=== PATIENT | male | born 1960 | race Caucasian/White ===

== ENCOUNTER 2018-04-09 05:41 | Inpatient (IN) ==
[~2018-04-09 05:41] MED LIST: LIDOCAINE W/ SODIUM BICARB 0.5 ML SYR ONE; Lactated Ringers 1,000 ML PRIMARY IV ONE; Sodium Chloride 0.9% 250 ML ONE; Vancomycin Inj 1gm vial ONE; ceFAZolin Inj 2gm (Premix) 0 GM/0 ML BAG IV ONE
[2018-04-09] MEDS ORDERED: ceFAZolin Inj 2gm (Premix) 2 GM/50 ML BAG IV ONE (06:00)
[2018-04-09] MEDS ORDERED: Nasal Sanitizer POPSWAB ampule 3 AMP (Nozin) PREOP DOSE ENOS SCH (06:00)
[2018-04-09] MEDS ORDERED: LIDOCAINE W/ SODIUM BICARB 0.5 ML SYR SUBD ONE (06:00)
[2018-04-09] MEDS ORDERED: Lactated Ringers 1,000 ML PRIMARY IV ONE ×4 (06:00→13:47)
[2018-04-09] MEDS ORDERED: MIDAZOLAM 5 MG/1 ML ONE (06:02)
[2018-04-09] MEDS ORDERED: DEXAMETHASONE PF 10 MG/1 ML VIAL ONE (06:02)
[2018-04-09] MEDS ORDERED: KETOROLAC 30 MG/1 ML VIAL ONE (06:02)
[2018-04-09] MEDS ORDERED: LIDOCAINE MPF 2% - 5 ML (20 MG/1 ML) ONE (06:02)
[2018-04-09] MEDS ORDERED: CITRIC ACID/SODIUM CITRATE 30 ML CUP PO ONE (06:03)
[2018-04-09] MEDS ORDERED: fentaNYL Inj 250 MCG/5 ML VIAL ONE (06:03)
[2018-04-09] MEDS ORDERED: FAMOTIDINE 20 MG/2 ML VIAL IVP ONE (06:03)
[2018-04-09] MEDS ORDERED: ROCURONIUM 10 MG/1 ML - 5 ML VIAL IVP ONE (06:03)
[2018-04-09] MEDS ORDERED: Propofol 1,000 MG/100 ML VIAL IV ONE ×4 (06:03→12:04)
[2018-04-09] MEDS ORDERED: Acetaminophen 1000mg Inj 1,000 MG/100 ML VIAL IV ONE (06:04)
[2018-04-09] MEDS ORDERED: REMIFENTANIL HCL 2 MG VIAL IV ONE ×3 (06:13→12:58)
[2018-04-09 06:14] LABS: BILIRUBIN,URINE NEGATIVE (NEG); CLARITY,URINE CLEAR (CLEAR); COLOR,URINE YELLOW (Y); GLUCOSE, URINE (UA) NEGATIVE (NEG); OCCULT BLOOD,URINE NEGATIVE (NEG); PH,URINE 5.5 (5.0-8.5); PROTEIN,URINE NEGATIVE (NEG); UROBILINOGEN,URINE 0.2 EU/dL (0.2)
[2018-04-09] MEDS ORDERED: TRANEXAMIC ACID 1,000 MG / 10 ML VIAL ONE (06:14)
[2018-04-09 06:15] LABS: URINE SAMPLE TYPE CLEAN CATCH URINE
[2018-04-09] MEDS ORDERED: SUCCINYLCHOLINE CHLORIDE 20 MG/1 ML - 10 ML ONE (06:18)
[2018-04-09] MEDS ORDERED: KETAMINE HCL 100 MG/2 ML SYRINGE IV ONE (06:18)
[2018-04-09] MEDS ORDERED: BUPIVACAINE 0.25% W/ EPI - 10 ML VIAL ONE (06:57)
[2018-04-09] MEDS ORDERED: Sodium Chloride 0.9% vial 30 ML ONE (06:57)
[2018-04-09] MEDS ORDERED: BACITRACIN 50,000 UNIT VIAL IRRIG ONE (06:57)
[2018-04-09] MEDS ORDERED: LIDOCAINE HCL 2 % 10 ML JELLY URO-JECT TOPICAL ONE ×2 (07:01→07:45)
[2018-04-09] MEDS ORDERED: ceFAZolin Inj 3 GM in Sodium Chloride 0.9% 100 ML IV ONE (07:15)
[2018-04-09] MEDS ORDERED: ePHEDrine Inj 50 MG/ML AMP ONE (08:22)
[2018-04-09] MEDS ORDERED: HYDROmorphone 2 MG/1 ML ONE (08:22)
[2018-04-09] MEDS ORDERED: Sodium Chloride 0.9% vial 10 ML ONE (08:25)
[2018-04-09] MEDS ORDERED: PHENYLEPHRINE 10,000 MCG/1 ML VIAL ONE (08:25)
[2018-04-09] MEDS ORDERED: Sodium Chloride 0.9% 250 ML ONE (09:08)
[2018-04-09] MEDS ORDERED: ceFAZolin 1 GM VIAL ONE (12:37)
[2018-04-09] MEDS ORDERED: fentaNYL Inj 100 MCG/2 ML VIAL ONE (13:47)
[2018-04-09] MEDS ORDERED: Metoclopramide Inj 10 MG/2 ML VIAL IVP PRN (14:26)
[2018-04-09] MEDS ORDERED: diphenhydrAMINE 50 MG/1 ML VIAL IVP PRN (14:26)
[2018-04-09] MEDS ORDERED: ONDANSETRON 4 MG/2 ML VIAL IVP PRN ×2 (14:26→14:37)
[2018-04-09] MEDS ORDERED: LIDOCAINE W/ SODIUM BICARB 0.5 ML SYR SUBD PRN (14:26)
[2018-04-09] MEDS: HYDROmorphone 2 MG/1 ML IVP PRN ×4 (14:32→15:14)
[2018-04-09] MEDS ORDERED: DIAZEPAM 10 MG TABLET PO PRN (14:37)
[2018-04-09] MEDS ORDERED: MAGNESIUM 400 MG/5 ML - 30 ML (MILK OF MAGNESIA) PO PRN (14:37)
[2018-04-09] MEDS ORDERED: DOCUSATE 100 MG CAPSULE PO PRN (14:37)
[2018-04-09] MEDS ORDERED: Ondansetron ODT Tab 4 MG TAB PO PRN (14:37)
[2018-04-09] MEDS ORDERED: Fleet Enema 133ml RECTAL PRN (14:37)
[2018-04-09] MEDS ORDERED: Prochlorperazine Edisylate Inj 10mg/2ml vial IVP PRN (14:37)
[2018-04-09] MEDS ORDERED: HYDROcodone-APAP 5 MG -325 MG TABLET PO PRN (14:37)
[2018-04-09] MEDS ORDERED: BISACODYL 5 MG TABLET PO PRN (14:37)
[2018-04-09] MEDS ORDERED: DIAZEPAM 10 MG/2 ML (5 MG/1 ML) CARPUJECT IVP PRN (14:37)
[2018-04-09] MEDS ORDERED: MORPHINE SULFATE 2 MG/1 ML IVP PRN (14:37)
[2018-04-09] MEDS ORDERED: PROMETHAZINE 25 MG/1 ML VIAL IM PRN (14:37)
[2018-04-09] MEDS ORDERED: MAGNESIUM CITRATE 296 ML SOLUTION PO PRN (14:37)
[2018-04-09] MEDS ORDERED: Vancomycin-PHA to Dose IV SCH (14:45)
[2018-04-09] MEDS ORDERED: ceFAZolin Inj 1 GM in Sodium Chloride 0.9% 100 ML IV SCH (16:00)
[2018-04-09] MEDS: ceFAZolin Inj 2gm (Premix) 2 GM/50 ML BAG IV SCH (16:26)
[2018-04-09] MEDS: HYDROcodone-APAP 10 MG-325 MG TABLET PO PRN (16:27)
--- NOTE | 2018-04-09 18:33 | GEN.OPNOTE ---
Operative Note Surgery Date: 04/09/18 Preoperative Diagnosis: 1) Early cervical myelopathy. 2) Persistent and progressive neck pain for over six months. 3) Persistent and progressive right hand weakness, present for over six months. 4) Multilevel cervical degenerative disc disease, mild C2-3, moderate C4-5, early advanced C5-6 and C6- 7, advanced C3-4. 5) Multilevel cervical spondylosis, mild to moderate throughout the cervical spine. 6) Prominent diffuse disc bulge, C3-4 producing high grade central canal stenosis with complete effacement of the CSF signal around the cord at this level, but no evidence of suzanne cord compression with the cord caliber appearing to be normal. No evidence of signal change in the cord at this level. There is severe bilateral neuroforaminal stenosis at this level. 7) Moderate central canal stenosis C4-5 secondary to a broad based disc bulge, but with severe bilateral neuroforaminal stenosis at this level. 8) Very prominent broad based diffuse disc bulge, C5-6 with ligamentous hypertrophy and cervical spondylosis and ligamentous hypertrophy with the combined effect producing marked central canal stenosis at this level with clear impingement and deformation of the cervical spinal cord with reduction in the caliber of the spinal cord at this level and myelomalacia present throughout the majority of the cord at this level and extending below to the C6-7 level. There is severe bilateral neuroforaminal stenosis at this level. 9) Moderately severe central canal stenosis C6-7 secondary to a broad based disc bulge, more diffuse prominent disc bulge more prominent, however on the right with cervical spondylosis and ligamentous hypertrophy at this level producing high grade central canal stenosis, but with some CSF signal at least around the cervical spinal cord at least in the left hemicanal. There is no cord compression at this level, but minimal protective CSF signal, particularly in the right hemicanal. There is severe bilateral neuroforaminal stenosis at this level. Postoperative Diagnosis: 1) Early cervical myelopathy. 2) Persistent and progressive neck pain for over six months. 3) Persistent and progressive right hand weakness, present for over six months. 4) Multilevel cervical degenerative disc disease, mild C2-3, moderate C4-5, early advanced C5-6 and C6- 7, advanced C3-4. 5) Multilevel cervical spondylosis, mild to moderate throughout the cervical spine. 6) Prominent diffuse disc bulge, C3-4 producing high grade central canal stenosis with complete effacement of the CSF signal around the cord at this level, but no evidence of suzanne cord compression with the cord caliber appearing to be normal. No evidence of signal change in the cord at this level. There is severe bilateral neuroforaminal stenosis at this level. 7) Moderate central canal stenosis C4-5 secondary to a broad based disc bulge, but with severe bilateral neuroforaminal stenosis at this level. 8) Very prominent broad based diffuse disc bulge, C5-6 with ligamentous hypertrophy and cervical spondylosis and ligamentous hypertrophy with the combined effect producing marked central canal stenosis at this level with clear impingement and deformation of the cervical spinal cord with reduction in the caliber of the spinal cord at this level and myelomalacia present throughout the majority of the cord at this level and extending below to the C6-7 level. There is severe bilateral neuroforaminal stenosis at this level. 9) Moderately severe central canal stenosis C6-7 secondary to a broad based disc bulge, more diffuse prominent disc bulge more prominent, however on the right with cervical spondylosis and ligamentous hypertrophy at this level producing high grade central canal stenosis, but with some CSF signal at least around the cervical spinal cord at least in the left hemicanal. There is no cord compression at this level, but minimal protective CSF signal, particularly in the right hemicanal. There is severe bilateral neuroforaminal stenosis at this level. Procedure: 1.) Anterior cervical discectomy, C3-4 with removal of the posterior longitudinal ligament, for decompression of central cervical canal stenosis and bilateral neuroforaminal stenosis. (CPT code: 74472). 2.) Anterior cervical discectomy, C4-5 with removal of the posterior longitudinal ligament, for decompression of central cervical canal stenosis and bilateral neuroforaminal stenosis. (CPT code: 70234). 3.) Anterior cervical discectomy, C5-6 with removal of the posterior longitudinal ligament, for decompression of central cervical canal stenosis and bilateral neuroforaminal stenosis. (CPT code: 63 076). 4.) Anterior cervical discectomy, C6-7 with removal of the posterior longitudinal ligament, for decompression of central cervical canal stenosis and bilateral neuroforaminal stenosis. (CPT code: 76449). 5.) Arthrodesis, anterior interbody technique, C3-4. (CPT code: 05324). 6.) Arthrodesis, anterior interbody technique, C4-5. (CPT code: 65545). 7.) Arthrodesis, anterior interbody technique, C5-6. (CPT code: 90006). 8.) Arthrodesis, anterior interbody technique, C6-7. (CPT code: 92342). 9.) Insertion of a 6 mm x 17 mm x 14 mm 6-degree lordotic Svitlana Tritanium C titanium anterior cervical cage filled in the center with DBM putty in the C3-4 interspace for fusion of the C3-4 interspace. (CPT code: 48049). 10.) Insertion of a 6 mm x 17 mm x 14 mm 6-degree lordotic [place] Tritanium C titanium anterior cervical cage filled in the center with DBM putty in the C4-5 interspace for fusion of the C4-5 interspace. (CPT code: 98754). 11.) Insertion of a 6 mm x 17 mm x 14 mm 6- degree lordotic Svitlana Tritanium C titanium anterior cervical cage filled in the center with DBM putty in the C5-6 interspace for fusion of the C5-6 interspace. (CPT code: 30877). 12.) Insertion of a 6 mm x 17 mm x 14 mm 6- degree lordotic [place] Tritanium C titanium anterior cervical cage filled in the center with DBM putty in the C6-7 interspace for fusion of the C6-7 interspace. (CPT code: 45970). 13.) Anterior cervical plating C3-C7 using a 4- level, 10 hole, 60 mm Svitlana Aviator titanium anterior cervical plate, affixed to the C3 vertebral body using 4.0 mm x 16 mm variable angle titanium anterior cervical screws, to the C4, C5, and C6 vertebral bodies using 4.0 mm x 14 mm variable angle titanium anterior cervical screws, and to the C7 vertebral body using 4.0 mm x 16 mm fixed angle titanium anterior cervical screws. (CPT code: 47279). 14.) Use of 5 cc of Click & Grow BIO DBM Plus Putty with Cancellous (implantable allograft) for filling of the anterior cervical cages. (CPT code: 46562). 15.) Use of the operative microscope for the microsurgical techiques for the C3-4, C4-5, C5-6, and C6-7 discectomies. (CPT code: 58303). 16.) Use of intra-operative fluoroscopy for localization of correct surgical levels, for confirmation of the final position of the intervertebral cages, and for confirmation of the final position of the anterior cervical hardware elements. 17.) Use of intra-operative neuromonitoring including free running EMG's, SSEP's, and MEP's. Surgeon: Michel Nguyen MD Marble Machine Tender: PINEDA Abraham Anesthesia Provider: Rivka Judd CRNA Anesthesia Type: General Estimated Blood Loss (mL): 100 Fluids: See anesthesia record Pathology: None Indications: Mr. Estrella is a 57-year-old gentleman who started to have neck pain and weakness of his right hand that started in November of last year. This has persisted and his neck pain became worse recently. Mr. Estrella neck pain has been persistent now for six months and is getting worse, but probably of equal or worse concern to him is his right hand weakness, which appears to be getting worse as well. This is his dominant hand and it concerns him that he cannot use it the way he would like to. He has difficulty hold onto things and he has difficulty with dexterity of the right hand. He states it is difficult for him to button buttons. Mr. Estrella denies any gait disturbance; balance issues; and he denies any bladder, bowel, or sexual dysfunction. Mr. Estrella had an MRI scan of the cervical spine demonstrating multilevel high grade central canal stenosis with cord compression and multilevel severe cervical neuroforaminal stenosis. We discussed considering, particularly for his early myelopathic symptoms with imaging evidence of cord compression, undergoing a C3-4, C4-5, C5-6, C6-7 anterior cervical discectomy and fusion. He wished to proceed with that surgical procedure. Findings: 1.) Collapse of the majority of the disc space height, C3-4, C5-6, C6-7. 2.) Severe central canal stenosis, C3-4, C5-6, C6-7. 3.) Severe bilateral neuroforaminal stenosis, C3-4, C4-5, C5-6, C6-7 Complications: NOne Operative Summary: Mr. Estrella was met in the preoperative area. His documented surgical history and physical was reviewed. We reviewed the procedure to be performed and we were in agreement on the procedure to be performed and this matched what was written on the patient's consent form. Any questions that Mr. Estrella or his had were answered before he was taken back to the operating room suite. Mr. Estrlela was brought back to the operating room suite. He was moved over onto the surgical bed in supine position. General anesthesia was induced by the anesthesia staff and he was intubated. A Hayward catheter was placed in his bladder for the procedure. He had pneumatic compression hose placed on his lower legs bilaterally. His head was placed on a gel ring and rolled up surgical towels were placed in the intrascapular area and under his shoulders bilaterally. His arms were gently tucked at his sides. All bony prominences were well padded. His Hayward catheter was checked to be free from kinks. His pneumatic compression hose were attached to a pneumatic compression devise. The C-arm fluoroscopy unit was used to help localize the skin incision for the approach to the intended surgical level. The skin was marked along the medial border of the sternocleidomastoid muscle with a skin marker. Mr. Estrella was prepped and draped in the usual and standard fashion. He was given 3 grams of A ncef and 1 gram of vancomycin IV for perioperative antibiosis. A standard surgical timeout was performed identifying the correct patient, the correct procedure, and the correct equipment being available for the procedure. The intended skin incision was injected subcutaneously with quarter percent Marcaine with 1 in 200,000 epinephrine. The skin was incised with a 10 blade scalpel and all dermal and superficial bleeding points controlled with bipolar cautery. Dissection was continued down through the subcutaneous tissue to the level of the platysma muscle. The platysma muscle was incised with the Metzenbaum scissors in the direction of the skin incision. This allowed identification the medial border of the sternocleidomastoid muscle. Further dissection identified the omohyoid muscle which was circumferentially dissected out, tagged with two 0-Silk suture and then cut with a Metzenbaum scissors with the muscle stumps retracted with snaps attached to the sutures. Continued dissection was performed medial to the sternocleidomastoid muscle in both a sharp and blunt fashion down to the pre- vertebral fascia. The carotid artery was palpated to be lateral to the dissection plane. Cloward hand-held retractors were used to retract and protect the soft tissues while the prevertebral fascia was dissected with a Kitner. Once the disc space became exposed a bent spinal needle was placed into the disc space and the level was localized as the C4-5 level, one of the intended surgical levels with lateral fluoroscopy. Continued dissection of the prevertebral fascia was performed exposing the C3, C4, C5, C6, and C7 vertebral bodies. The medial border of the longus coli muscle was dissected with Bovie cautery with an insulated tip turned down to a low setting from C3-C7 bilaterally. The hand-held Cloward retractors were then replaced with the Application Trainer self-retaining retractor system which was first placed at the C3-4 level to expose this level and protect the soft tissues at this level. A 12 mm distraction pin was placed into the C3 vertebral body and another was placed into the C4 vertebral body. The operative microscope was brought into the surgical field and used for microsurgical techniques used for the C3-4 discectomy. An annulotomy was performed with a 15 blade scalpel and disc material was removed with a pituitary rongeur. Additional disc and cartilaginous endplate was loosened in the disc space using a small straight curette with the fragments being removed with a pituitary rongeur. The high-speed Naked Ed drill with a matchstick bit was used to perform arthrodesis/decortication of the C3 and C4 endplates preparing the endplates for fusion. The same drill with the same bit was used to drill away the prominent diffuse osteophytes along the posterior inferior aspect of the C3 vertebral body and the posterior superior aspect of C4 vertebral body as well as the uncovertebral joints bilaterally which were hypertrophied bilaterally. Foraminotomies were performed bilaterally with the same drill with same bit. A nerve hook was used to define the plane between the posterior longitudinal ligament and the dura. The posterior longitudinal ligament was completely removed with small Kerrison punches. The same instruments were used to extend the foraminotomies bilaterally that had been started with the high-speed drill with a matchstick bit. Excellent decompression of the spinal canal, neuroforamen, and exiting nerve roots was assured both by visual inspection as well as by palpation with a nerve hook underneath the vertebral bodies and out the neuroforamen bilaterally. The interspace was irrigated with bacitracin irrigation. FloSeal hemostatic agent was placed over all exposed dural elements. The interspace was sized the appropriate size anterior cervical cage. A 6 mm x 14 mm x 17 mm 6-degree lordotic Tritanium C titanium anterior cervical cage was selected and filled in the center with [place] BIO DBM Plus Putty with Cancellous(allograft) and then inserted into the C3-4 interspace with the payroll supervisor. The cage was gently countersunk with a bone tamp and mallet. The cage obtained good purchase between the C3 and C4 endplates. The final position of the cage was confirmed with lateral fluoroscopy. The C3 Kimmswick distraction pin was removed and bony bleeding was controlled with FloSeal and a surgical ponce. The Application Trainer self-retaining retractor system was removed and placed across the C4-5 level for the exposure this level and the protection of the soft tissues at this level. The Kimmswick distraction pin was placed into the C5 vertebral body. The operative microscope was used for this microsurgical techniques used for the C4-5 discectomy. An annulotomy was performed with a 15 blade scalpel and disc material was removed with a pituitary rongeur. Additional disc and cartilaginous endplate was loosened in the disc space with a small straight curette with the fragments being removed with a pituitary ronqeur. The high- speed Naked Ed drill with a matchstick bit was used to perform arthrodesis/decortication of the C4 and C5 endplates preparing the endplates for fusion. The same drill with the same bit was used to drill away the diffuse, prominent osteophytes along the posterior inferior aspect of the C4 vertebral body and the posterior superior aspect of the C5 vertebral body as well as to drill away the uncovertebral joint hypertrophy bilaterally. Foraminotomies were performed bilaterally with the same drill with the same bit. A nerve hook was used to define the plane between the posterior longitudinal ligament and the dura. The posterior longitudinal ligament was completely removed with small Kerrison punches. The same instruments were used to extend the foraminotomies bilaterally that had been started with the high-speed drill with a matchstick bit. Excellent decompression of the spinal canal, neuroforamen, and exiting nerve roots was assured both by visual inspection as well as by palpation with a nerve hook underneath the vertebral bodies and out the neuroforamen bilaterally. The interspace was irrigated with bacitracin irrigation. FloSeal hemostatic agent was placed over all exposed dural elements. The interspace was sized the appropriate size anterior cervical cage. A 6 mm x 14 mm x 17 mm 6-degree Tritanium C titanium anterior cervical cage was selected and filled in the center with Svitlana BIO DBM PlusPutty with Cancellous (allograft) and then inserted into the C4-5 interspace with the payroll supervisor. The cage was gently countersunk with a bone tamp and mallet. The cage obtained good purchase between the C4 and C5 endplates. The final position of the cage was confirmed with lateral fluoroscopy. The C5 Kimmswick distraction pin was removed and bony bleeding was controlled with FloSeal and a surgical ponce. The Application Trainer self-retaining retractor system was removed and placed across the C5-6 level for the exposure this level and the protection of the soft tissues at this level. The Kimmswick distraction pin was placed into the C6 vertebral body. The operative microscope was used for this microsurgical techniques used for the C5-6 discectomy. An annulotomy was performed with a 15 blade scalpel and disc material was removed with a pituitary rongeur. Additional disc and cartilaginous endplate was loosened in the disc space with a small straight curette with the fragments being removed with a pituitary ronqeur. The high- speed Naked Ed drill with a matchstick bit was used to perform arthrodesis/decortication of the C5 and C6 endplates preparing the endplates for fusion. The same drill with the same bit was used to drill away the diffuse, prominent osteophytes along the posterior inferior aspect of the C5 vertebral body and the posterior superior aspect of the C6 vertebral body as well as to drill away the uncovertebral joint hypertrophy bilaterally. Foraminotomies were performed bilaterally with the same drill with the same bit. A nerve hook was used to define the plane between the posterior longitudinal ligament and the dura. The posterior longitudinal ligament was completely removed with small Kerrison punches. The same instruments were used to extend the foraminotomies bilaterally that had been started with the high-speed drill with a matchstick bit. Excellent decompression of the spinal canal, neuroforamen, and exiting nerve roots was assured both by visual inspection as well as by palpation with a nerve hook underneath the vertebral bodies and out the neuroforamen bilaterally. The interspace was irrigated with bacitracin irrigation. FloSeal hemostatic agent was placed over all exposed dural elements. The interspace was sized the appropriate size anterior cervical cage. A 6 mm x 14 mm x 17 mm 6-degree Tritanium C titanium anterior cervical cage was selected and filled in the center with Svitlana BIO DBM Plus Putty with Cancellous (allograft) and then inserted into the C5-6 interspace with the payroll supervisor. The cage was gently countersunk with a bone tamp and mallet. The cage obtained good purchase between the C6 and C7 endplates. The final position of the cage was confirmed with lateral fluoroscopy. The C5 Kimmswick distraction pin was removed and bony bleeding was controlled with FloSeal and a surgical ponce. The Application Trainer self-retaining retractor system was removed and placed across the C5-6 level for the exposure this level and the protection of the soft tissues at this level. The Kimmswick distraction pin was placed into the C7 vertebral body. The operative microscope was used for this microsurgical techniques used for the C6-7 discectomy. An annulotomy was performed with a 15 blade scalpel and disc material was removed with a pituitary rongeur. Additional disc and cartilaginous endplate was loosened in the disc space with a small straight curette with the fragments being removed with a pituitary ronqeur. The high- speed Naked Ed drill with a matchstick bit was used to perform arthrodesis/decortication of the C6 and C7 endplates preparing the endplates for fusion. The same drill with the same bit was used to drill away the diffuse, prominent osteophytes along the posterior inferior aspect of the C6 vertebral body and the posterior superior aspect of the C7 vertebral body as well as to drill away the uncovertebral joint hypertrophy bilaterally. Foraminotomies were performed bilaterally with the same drill with the same bit. A nerve hook was used to define the plane between the posterior longitudinal ligament and the dura. The posterior longitudinal ligament was completely removed with small Kerrison punches. The same instruments were used to extend the foraminotomies bilaterally that had been started with the high-speed drill with a matchstick bit. Excellent decompression of the spinal canal, neuroforamen, and exiting nerve roots was assured both by visual inspection as well as by palpation with a nerve hook underneath the vertebral bodies and out the neuroforamen bilaterally. The interspace was irrigated with bacitracin irrigation. FloSeal hemostatic agent was placed over all exposed dural elements. The interspace was sized the appropriate size anterior cervical cage. A 6 mm x 14 mm x 17 mm 6-degree Tritanium C titanium anterior cervical cage was selected and filled in the center with [place] BIO DBM Plus Putty with Cancelloous (allograft) and then inserted into the C6-7 interspace with the payroll supervisor. The cage was gently countersunk with a bone tamp and mallet. The cage obtained good purchase between the C6 and C7 endplates. The final position of the cage was confirmed with lateral fluoroscopy. The Kimmswick distraction pins in the C6 and C7 vertebral bodies were removed. Bony bleeding was controlled FloSeal and surgical patties. The Application Trainer self- retaining retractor system was removed and placed in the center portion of the surgical dissection to provide the proper exposure needed for the instrumentation portion of the procedure. Any remaining C3, C4, C5, C6, and C7 anterior osteophytes were removed with the large Leksell rongeur as well as with the high speed drill with the matchstick bit. The appropriate size anterior cervical plate were selected both by visual inspection as well as by lateral fluoroscopy. A 4 level, 10 hole, 60 mm [place] Aviator titanium anterior cervical plate was selected and affixed to the C3 vertebral bodies using 4.0 mm x 16 mm variable angle titanium anterior cervical screws and to the C4, C5, and C6 vertebral bodies using 4.0 mm x 14 mm variable angle titanium screws, and to the C7 vertebral body using 4.0 mm x 16 mm fixed angle titanium anterior cervical screws. All screws obtained good purchase in the vertebral body bone. The locking mechanism was then deployed at each with visual inspection confirming that the locking mechanism fully deployed across each of the screw heads at each level of the plate bilaterally. The Application Trainer self-retaining retractor system was removed from the surgical site. Final AP and lateral fluoroscopic images were obtained. The rivas of the dissection plane were inspected for any bleeding points. Any identified were coagulated with bipolar cautery. The surgical site was copiously irrigated with bacitracin irrigation allowing the irrigant to sit to again inspect for any bleeding points with none identified. A medium KALLIE drain was placed into the surgical site. The closure portion of the procedure was begun. The omohyoid muscle was re-approximated by the 0-Silk suture attached to the mu scle stumps and by two interrupted 3-0 Vicryl suture. The platysma muscle was reapproximated with 3-0 Vicryl suture in an interrupted fashion. The dermis and superficial subcutaneous tissue was reapproximated with 3-0 Vicryl suture in an inverted interrupted fashion. The incision was cleansed with a bacitracin soaked sponge and dried with a sterile dry sponge. Steri-Strips were placed across the incision. The incision was dressed with a Covaderm dressing. The surgical drain was secured with suture. The drain site was dressed. All surgical drapes removed from Mr. Sameer Sarabia was carefully moved over onto the PACU stretcher. He was awoken and extubated by the anesthesia staff. He was taken to the recovery room in stable condition. All surgical counts reported as correct by the scrub and circulating personnel. A Physician's Marble Machine Tender, Ms. Melly Frank PA-C, assisted with the procedure including the exposure and closure portions of the procedure. She also provided irrigation and suctioning throughout the procedure.
[2018-04-09] MEDS: GLIMEPIRIDE 2 MG TABLET PO SCH ×2 (18:40→20:16)
[2018-04-09] MEDS: metFORMIN 500 MG TABLET PO SCH ×2 (18:40→20:16)
--- NOTE | 2018-04-09 18:57 | CRNA.PROGR ---
Anesthesia Time - Procedure/Recovery Time Start Date: 04/09/18 Anesthesia : Time In: 07:30 Anesthesia : Time Out: 14:29 - Other Weight: 120.656 kg Height: 5 ft 9 in Body Mass Index (BMI): 39.2 Physical Status: P2 Anesthesia Type: General Anesthesia : ET
--- NOTE | 2018-04-09 19:03 | NEURO.PROG ---
Subjective Post Op Day: 0 Pain Management: PO [place] Catheter: Yes Flatus: Yes Diet: Constant Carbohydrate Ambulating: Yes Additional Details: Awake and alert. Sitting comfortably in surgical bed. Neck - soft/flat. Dressing - clean/dry/intact. Right manufacturing engineer automotive still weak, but unchanged. Denies any new arm symptoms. Moving all extremities well. PLAN: 1.) Continue post-operative antibiotics. 2.) Continue post-operative pain control. 3.) Mobilize. Objective : Data - Vital Signs Vital Signs and I&O: Vital Signs - Last Taken Temperature 98.4 F 04/09/18 17:22 Pulse Rate 99 04/09/18 17:22 Respiratory Rate 12 04/09/18 17:22 Blood Pressure 140/91 04/09/18 17:22 Pulse Ox 94 04/09/18 17:22 Intake and Output (24hr x 4 totals) 04/07/18 04/08/18 04/09/18 04/10/18 05:59 05:59 05:59 05:59 Intake Total 3000 / 3000 Output Total 375 / 375 Balance 2625 / 2625
--- NOTE | 2018-04-09 20:04 | CONSULT ---
Consult Note - Consult Reason for Consult: PostOp Consulation : Neuro Primary Care Provider: UNKNOWN UNKNOWN - History of Present Illness History of Present Illness: Is a very nice 57-year-old female who comes to her floor postop for a cervical surgery C3 this 3 C6 discectomy and fusion hospitalist service was consulted for diabetes and hypertension. Patient is doing well postop she feels a little cold otherwise hemodynamically stable no chest pain nausea or vomiting Past Medical History Medical History: Diabetes, hypertension Tobacco Use: Never Smoker In the Past 12 Months, Have Used or Abuse Any of the Following Substance: None Medication / Allergies Home Medications: Home Medications Medication Instructions Recorded Confirmed Type Aspirin [St Lv Aspirin] 81 mg PO DAILY 08/13/10 04/09/18 History Lisinopril [Zestril] 80 mg PO DAILY 08/13/10 04/09/18 History atorvastatin 10 mg tablet 10 mg PO QDAY 03/22/18 04/09/18 History cholecalciferol (vitamin D3) 1,000 1,000 unit PO QDAY 03/22/18 04/09/18 History unit capsule glimepiride 4 mg tablet 4 mg PO BID 03/22/18 04/09/18 History metformin 1,000 mg tablet 1,000 mg PO BID 03/22/18 04/09/18 History Allergies/Adverse Reactions: Allergies Allergy/AdvReac Type Severity Reaction Status Date / Time propoxyphene napsylate Allergy SWELLING Verified 04/09/18 17:45 [From Darvocet-N 100] eggs AdvReac Diarrhea Uncoded 04/09/18 06:12 Exam - Vitals Vital Signs: Vital Signs Temperature 98.4 F Pulse Rate 99 Respiratory Rate 12 Blood Pressure 140/91 Pulse Ox 94 Oxygen Flow Rate 3 Oxygen Delivery Method Nasal Cannula Height 5 ft 9 in Weight 266 lb - General General Appearance: No Acute Distress, Cooperative - Respiratory Respiratory Exam: POSITIVE: Clear to Auscultation - Bilaterally, Breathing Non Labored, Normal To Percussion, Normal to Percussion and Palpation - Cardiovascular Cardiovascular Exam: POSITIVE: RRR, No Murmur, No Clicks, No Gallops, No Rubs, PMI Non-Displaced - GI/Abdominal GI/Abdominal Exam: POSITIVE: Normal Bowel Sounds, Non Tender, Non Distended, Soft, No Masses, No Hepatomegaly, No Splenomegaly, No Organomegaly Assessment and Plan - Patient Problems (1) Cervical vertebral fusion Current Visit: Yes Status: Acute Comment: The further neurosurgical team PT and OT Code(s): M43.22 - Fusion of spine, cervical region (2) Diabetes 1.5, managed as type 2 Current Visit: No Status: Chronic Comment: Check sugars before meals at bedtime continue current meds Code(s): E13.9 - Other specified diabetes mellitus without complications (3) High blood pressure Current Visit: No Status: Chronic Comment: Continue lisinopril Code(s): I10 - Essential (primary) hypertension
[2018-04-09] MEDS ORDERED: ATORVASTATIN 10 MG TABLET PO SCH (21:00)
[2018-04-09] MEDS: HYDROcodone-APAP 7.5 MG-325 MG TABLET PO PRN (23:20)
[2018-04-09 23:53] VITALS: O2SAT 92
[2018-04-10] MEDS: ceFAZolin Inj 2gm (Premix) 2 GM/50 ML BAG IV SCH (00:52)
[2018-04-10] MEDS: HYDROcodone-APAP 7.5 MG-325 MG TABLET PO PRN (03:59)
[2018-04-10] MEDS ORDERED: PANTOPRAZOLE 40 MG TABLET PO SCH (07:00)
[2018-04-10 08:27] VITALS: BP 142/84; RESP 16; TEMP 96.9
[2018-04-10] MEDS: GLIMEPIRIDE 2 MG TABLET PO SCH (08:41)
[2018-04-10] MEDS: HYDROcodone-APAP 10 MG-325 MG TABLET PO PRN (08:41)
[2018-04-10] MEDS: metFORMIN 500 MG TABLET PO SCH (08:41)
--- NOTE | 2018-04-10 08:51 | NEURO.PROG ---
Subjective Post Op Day: 1 Pain Management: PO [place]ward Catheter: No Flatus: Yes Diet: Controlled carbohydrate Ambulating: Yes Additional Details: Awake and alert. No complaints. Feels good; feels ready for discharge to home. Neck - soft/flat. Dressing - clean/dry/intact. Drain output last shift - 20cc. Good movement all extremities. PLAN: 1.) Discontinue drain. 2.) Discharge to home. Objective : Data - Vital Signs Vital Signs and I&O: Vital Signs - Last Taken Temperature 96.9 F 04/10/18 08:22 Pulse Rate 82 04/10/18 08:22 Respiratory Rate 16 04/10/18 08:22 Blood Pressure 142/84 04/10/18 08:22 Pulse Ox 92 04/10/18 08:22 Intake and Output (24hr x 4 totals) 04/08/18 04/09/18 04/10/18 04/11/18 05:59 05:59 05:59 05:59 Intake Total 5722 / 5722 Output Total 1660 / 1660 Balance 4062 / 4062
--- NOTE | 2018-04-10 08:59 | CRNA.PROGR ---
Anesthesia Note - Progress Notes Anesthesia Progress Note: Pt is up in chair with breakfast, some discomfort but being discharged today, has no complaints. CHENG Lockwood
[2018-04-10] MEDS ORDERED: LISINOPRIL 10 MG TABLET PO SCH (09:00)
--- NOTE | 2018-04-12 11:51 | PTI REPORT ---
Thank you for the referral of Chris Estrella. He was seen on 04/10/18 for an inpatient evaluation status post cervical fusion. SUBJECTIVE: The patient is a 57-year-old male. The patient reports since surgery he is not having near the pain that he was having prior to surgery but is complaining of continued numbness down the right hand which he has been told is normal. At the time of the evaluation his was present and they have been told by Dr. Nguyen's PA that if cleared by therapy, he may be able to go home today. PAST MEDICAL HISTORY: Past medical history can be found in the patient's medical record. OBJECTIVE FINDINGS: General observations: The patient was issued an [place] cervical collar and instructed on how to don and doff it. After verbal and visual education, the patient was able to independently don and doff and adjust. We reviewed swallowing techniques to promote proper swallowing and prevent aspiration, specifically of water. Pain: The patient reports a pain level currently of 4/10 on the verbal analog scale (0=no pain, 10=worst pain). Incision: The patient's incision was unable to be inspected due to his surgical bandage. Range of motion: Upper extremity and lower extremity active range of motion is within functional limits as demonstrated by the patient being able to don and doff his cervical brace as well as dress himself after verbal education. Strength: Strength was not formally tested due to surgical precautions. Bed mobility/Transfers: The patient demonstrated the ability to perform all bed mobility and transfers with stand by assistance. Ambulation: The patient was able to ambulate well over 300 feet and ascend/descend a flight of stairs with a step over gait pattern ascending and a step to gait pattern descending with use of stand by assistance and hand rail. ASSESSMENT: Problem List: Cervical spine surgery and restrictions Decreased ability to complete dressing activities Donning/doffing brace Ambulatory activities Physical Therapy Goals: To be met by discharge from inpatient: Patient will be educated on donning/doffing and adjusting cervical brace. Patient will be instructed on lifting restrictions and provide verbal understanding. Patient will be able to perform all bed mobility and transfers independently. Patient will be able to ambulate greater than 300 feet as well as ascend/descend a flight of stairs for return to home safely. TREATMENT PLAN: Patient will receive physical therapy evaluation as well as education on donning/doffing brace, surgical restriction, dressing activities, and ambulatory activities. INITIAL TREATMENT: Treatment today consisted of the initial evaluation. The patient was provided with a cervical collar and educated on donning/doffing and adjustment which the patient was able to do. He was able to ambulate 300 feet without the use of an assistive device, gait belt, and stand by assistance as well as ascend and descend a flight of stairs utilizing step over gait pattern ascending and step to descending. He also demonstrated the ability to dress himself with modified independence with verbal cues for safety. At this time the patient has been cleared by physical therapy and may be discharged home. RODRIGO
== END 2018-04-10 11:46 | disposition home or self-care (01) | DRG 455 ==
LOC: MED/SURG 05:41
PROVIDERS: ADMIT Neurological Surgery; ATTEND Neurological Surgery